=== PATIENT | male | born 1965 | race Two or more races ===

== ENCOUNTER 2021-10-22 20:08 | Emergency (ER) | payer OTHER ==
[~2021-10-22] VITALS: Ht 177.8 cm; Wt 117.5 kg
[2021-10-22] MEDS ORDERED: GLIMEPIRIDE1 M1 (20:38)
== END 2021-10-22 22:51 | disposition home or self-care (01) ==
LOC: ER 20:08
DX: B34.9 Viral infection, unspecified (principal); Z20.822 Contact with and (suspected) exposure to COVID-19